=== PATIENT | male | born 1985 | race Caucasian/White ===

== ENCOUNTER 2018-05-22 06:51 | Day surgery (SDC) | payer OTHER ==
[2018-05-22] MEDS ORDERED: ALEVE220 M1 PO (11:47)
[2018-05-22] MEDS ORDERED: PERCOCET 5-3251 EACH PO (11:47)
[2018-05-22] MEDS ORDERED: DUI500 PO (11:47)
== END 2018-05-22 13:10 | disposition home or self-care (01) ==
LOC: CIR.AMB 06:51
DX: S52.032A Displaced fracture of olecranon process with intraarticular extension of left ulna, initial encounter for closed fracture (principal)